=== PATIENT | female | born 1950 | race Two or more races ===

== ENCOUNTER 2019-07-20 12:52 | Emergency (ER) | payer OTHER ==
[~2019-07-20] VITALS: Ht 165.1 cm; Wt 84.8 kg
[2019-07-20 13:10] VITALS: BP 136/49
[2019-07-20] MEDS ORDERED: HYDROcodone-ACET 7.5/325MG TAB PO ONE (14:00)
== END 2019-07-20 14:32 | disposition home or self-care (01) ==
LOC: ER 12:52
DX: S82.142A Displaced bicondylar fracture of left tibia, initial encounter for closed fracture (principal); K21.9 Gastro-esophageal reflux disease without esophagitis; I10 Essential (primary) hypertension; W19.XXXA Unspecified fall, initial encounter; Y93.89 Activity, other specified; Y92.89 Other specified places as the place of occurrence of the external cause; Y99.8 Other external cause status
CPT/HCPCS: 73562